=== PATIENT | male | born 1945 | race Caucasian/White ===

== ENCOUNTER 2017-09-10 10:14 | Inpatient (IN) | payer OTHER ==
[~2017-09-10] VITALS: Ht 177.8 cm; Wt 63.1 kg
[~2017-09-10 10:14] MED LIST: ATORVASTATIN CA40 M1 PO; ATROVENT H0.017 MG/1 INH; HYDROXYZINE PAM25 MG PO; LOPERAMIDE2 MG PO; NASONEX0.05 MG/Ac; NASONEX0.05 MG/Ac IH; TRIAMCINOLONE AC TP; TYLENOL WITH CO1 TA2 PO; VITAMIN B121000 MCG PO; XOPENEX HF0.045 MG/1 INH
[2017-09-10 11:31] LABS: PLATELET COUNT 155 x10^3mcL (130-400); RED CELL DISTRIBUTION WIDTH 12.4 % (11.5-14.5)
[2017-09-10 11:39] LABS: CALCIUM 8.9 mg/dL (8.5-10.1); CARBON DIOXIDE 30.4 mmol/L (21-32); CHLORIDE SERUM 101 mmol/L (98-107); GLUCOSE SERUM 100 mg/dL (74-106); POTASSIUM SERUM 3.9 mmol/L (3.5-5.1); SODIUM SERUM 141 mmol/L (136-145)
[2017-09-10 11:42] LABS: microscopic required? NO
[2017-09-10 11:44] LABS: ALBUMIN 3.5 g/dL (3.4-5.0); ALKALINE PHOSPHATASE 79 U/L (46-116); ALT/SGPT 21 U/L (16-63); AST/SGOT 15 U/L (15-37); BILIRUBIN TOTAL 1.3 mg/dL (0.20-1.00)
[2017-09-10] MEDS ORDERED: DULERA1 AR3 INH (12:28)
[2017-09-10] MEDS ORDERED: MECLIZINE HYDRO25 M1 PO (12:29)
[2017-09-10] MEDS ORDERED: SPIRIVA18 MC1 INH (12:29)
[2017-09-10] MEDS ORDERED: ASPIR LOW81 MG PO (12:29)
[2017-09-10 12:30] LABS: urine erythrocyte NEGATIVE (NEGATIVE)
[2017-09-10 13:09] VITALS: BP 145/54
[2017-09-10 14:00] VITALS: BP 145/54
[2017-09-10 17:50] VITALS: BP 120/55
[2017-09-10 21:27] VITALS: BP 111/56
[2017-09-11 05:36] VITALS: BP 96/54
[2017-09-11 06:48] LABS: PLATELET COUNT 150 x10^3mcL (130-400); RED CELL DISTRIBUTION WIDTH 13.5 % (11.5-14.5)
[2017-09-11 06:54] LABS: BASOPHIL % 0 % (0-2)
[2017-09-11 07:16] LABS: CALCIUM 8.9 mg/dL (8.5-10.1); CARBON DIOXIDE 28.3 mmol/L (21-32); CHLORIDE SERUM 105 mmol/L (98-107); CREATININE SERUM 1.1 mg/dL (0.7-1.3); GLUCOSE SERUM 179 mg/dL (74-106); POTASSIUM SERUM 3.9 mmol/L (3.5-5.1); SODIUM SERUM 141 mmol/L (136-145)
[2017-09-11 09:56] VITALS: BP 125/62
[2017-09-11 11:06] VITALS: Ht 177.8 cm; Wt 63.1 kg
[2017-09-11 13:02] VITALS: BP 131/71
[2017-09-11 13:19] VITALS: BP 131/71
[2017-09-11 13:20] VITALS: BP 131/71
== END 2017-09-11 14:09 | disposition home or self-care (01) | DRG 190 ==
LOC: ED 10:14 → DU 11:51
PROVIDERS: Emergency Medicine; Internal Medicine
DX: J44.1 Chronic obstructive pulmonary disease with (acute) exacerbation (principal); J96.91 Respiratory failure, unspecified with hypoxia; Z90.49 Acquired absence of other specified parts of digestive tract; E78.5 Hyperlipidemia, unspecified; Z87.891 Personal history of nicotine dependence; K29.70 Gastritis, unspecified, without bleeding; Z85.038 Personal history of other malignant neoplasm of large intestine; I25.10 Atherosclerotic heart disease of native coronary artery without angina pectoris; J20.9 Acute bronchitis, unspecified; J44.0 Chronic obstructive pulmonary disease with (acute) lower respiratory infection
CPT/HCPCS: 36600; 83880; 87804; J1644; J1956; J2920; J3490; J7613; J7620; J7626; J7644; Q0163

== ENCOUNTER 2020-01-11 10:29 | Inpatient (IN) | payer OTHER, SELFPAY ==
[~2020-01-11] VITALS: Ht 182.9 cm; Wt 58.3 kg
[~2020-01-11 10:29] MED LIST changes: +ASPIR LOW81 MG PO; +DULERA1 AR3 INH; +MECLIZINE HYDRO25 M1 PO; +SPIRIVA18 MC1 INH
[2020-01-11 10:36] VITALS: Ht 182.9 cm; Wt 58.3 kg
[2020-01-11] MEDS ORDERED: SPIRIVA RE2.5 MCG/Ac IH (10:58)
[2020-01-11] MEDS ORDERED: ASPIRIN CHILDRE81 MG PO (10:59)
[2020-01-11] MEDS ORDERED: XOPENEX HF0.045 MG/1 INH (10:59)
[2020-01-11] MEDS ORDERED: LOPERAMIDE HCL2 M1 PO (10:59)
[2020-01-11] MEDS ORDERED: NASCOBAL1 EACH NS (11:00)
[2020-01-11] MEDS ORDERED: ATORVASTATIN CA10 M1 PO (11:00)
[2020-01-11] MEDS ORDERED: DRAMAMINE LESS25 MG PO (11:00)
[2020-01-11] MEDS ORDERED: MOMETASONE FURO60 ML TOP (11:01)
[2020-01-11] MEDS ORDERED: FLOMAX0.4 MG PO (11:01)
[2020-01-11] MEDS ORDERED: MICROZIDE12.5 MG PO (11:01)
[2020-01-11 11:26] LABS: BASOPHIL % 0.2 % (0-2); CALCIUM 7.6 mg/dL (8.5-10.1); CARBON DIOXIDE 27.1 mmol/L (21-32); CHLORIDE SERUM 99 mmol/L (98-107); CREATININE SERUM 1.2 mg/dL (0.7-1.3); GLUCOSE SERUM 98 mg/dL (74-106); POTASSIUM SERUM 3.5 mmol/L (3.5-5.1); RED CELL DISTRIBUTION WIDTH 13.4 % (11.5-14.5); SODIUM SERUM 135 mmol/L (136-145)
[2020-01-11 11:27] LABS: PLATELET COUNT 111 x10^3mcL (130-400)
[2020-01-11 11:31] LABS: ALKALINE PHOSPHATASE 67 U/L (46-116); ALT/SGPT 21 U/L (16-63); AST/SGOT 41 U/L (15-37); BILIRUBIN TOTAL 0.8 mg/dL (0.20-1.00); C REACTIVE PROTEIN 5.3 mg/dL (<=0.9); LACTIC DEHYDROGENASE (LDH) 189 U/L (100-190)
[2020-01-11 11:33] LABS: TOTAL PROTEIN, SERUM 5.8 g/dL (6.4-8.2)
[2020-01-11 12:32] LABS: UA SPECIFIC GRAVITY 1.025 (1.005-1.035); microscopic required? YES; urine erythrocyte 1+ (NEGATIVE)
[2020-01-11 14:30] VITALS: BP 116/65
[2020-01-11 14:44] VITALS: BP 106/63
[2020-01-11 16:36] VITALS: BP 110/60
[2020-01-11 23:17] VITALS: BP 115/63
[2020-01-12 05:44] VITALS: BP 128/76
[2020-01-12 08:20] VITALS: BP 135/76
[2020-01-12 11:43] LABS: CALCIUM 8.2 mg/dL (8.5-10.1); CARBON DIOXIDE 30.4 mmol/L (21-32); CHLORIDE SERUM 104 mmol/L (98-107); CREATININE SERUM 1.1 mg/dL (0.7-1.3); GLUCOSE SERUM 182 mg/dL (74-106); POTASSIUM SERUM 3.5 mmol/L (3.5-5.1); SODIUM SERUM 141 mmol/L (136-145)
[2020-01-12 12:30] VITALS: BP 138/74
[2020-01-12 16:42] VITALS: BP 136/69
[2020-01-12 20:45] VITALS: BP 129/72
[2020-01-13 05:55] VITALS: BP 120/72
[2020-01-13 07:45] LABS: PLATELET COUNT 136 x10^3mcL (130-400); RED CELL DISTRIBUTION WIDTH 13.6 % (11.5-14.5)
[2020-01-13 08:04] LABS: CALCIUM 8.7 mg/dL (8.5-10.1); CARBON DIOXIDE 31.6 mmol/L (21-32); CHLORIDE SERUM 108 mmol/L (98-107); CREATININE SERUM 1.1 mg/dL (0.7-1.3); GLUCOSE SERUM 91 mg/dL (74-106); POTASSIUM SERUM 3.8 mmol/L (3.5-5.1); SODIUM SERUM 144 mmol/L (136-145)
[2020-01-13 08:14] LABS: BASOPHIL % 0 % (0-2)
[2020-01-13 13:22] VITALS: BP 148/79
[2020-01-13 17:30] VITALS: BP 142/87
[2020-01-13 22:17] VITALS: BP 123/87
[2020-01-14 06:31] VITALS: BP 121/77
[2020-01-14 07:17] LABS: CALCIUM 8.1 mg/dL (8.5-10.1); CARBON DIOXIDE 31.9 mmol/L (21-32); CHLORIDE SERUM 108 mmol/L (98-107); CREATININE SERUM 1.1 mg/dL (0.7-1.3); GLUCOSE SERUM 84 mg/dL (74-106); POTASSIUM SERUM 3.9 mmol/L (3.5-5.1); SODIUM SERUM 144 mmol/L (136-145)
[2020-01-14 07:25] VITALS: BP 128/78
[2020-01-14 07:55] LABS: BASOPHIL % 0.1 % (0-2); PLATELET COUNT 135 x10^3mcL (130-400); RED CELL DISTRIBUTION WIDTH 13.6 % (11.5-14.5)
[2020-01-14 13:45] VITALS: BP 128/81
[2020-01-14 17:02] VITALS: BP 117/72
[2020-01-14 21:44] VITALS: BP 150/89
[2020-01-15 07:24] LABS: ALKALINE PHOSPHATASE 67 U/L (46-116); ALT/SGPT 62 U/L (16-63); AST/SGOT 77 U/L (15-37); BILIRUBIN TOTAL 0.32 mg/dL (0.20-1.00); CALCIUM 8.4 mg/dL (8.5-10.1); CARBON DIOXIDE 30.9 mmol/L (21-32); CHLORIDE SERUM 105 mmol/L (98-107); CREATININE SERUM 0.9 mg/dL (0.7-1.3); GLUCOSE SERUM 85 mg/dL (74-106); SODIUM SERUM 141 mmol/L (136-145)
[2020-01-15 07:27] LABS: ALBUMIN 2.5 g/dL (3.4-5.0); TOTAL PROTEIN, SERUM 5.5 g/dL (6.4-8.2)
[2020-01-15 07:29] VITALS: BP 120/73
[2020-01-15 07:40] LABS: BASOPHIL % 0.2 % (0-2); PLATELET COUNT 139 x10^3mcL (130-400); RED CELL DISTRIBUTION WIDTH 13.5 % (11.5-14.5)
[2020-01-15 08:52] VITALS: BP 117/80
[2020-01-15 13:01] VITALS: BP 123/76
[2020-01-15 17:43] VITALS: BP 129/83
[2020-01-15 20:33] VITALS: BP 147/80
[2020-01-16 05:46] VITALS: BP 137/83
[2020-01-16 07:13] LABS: BASOPHIL % 0.3 % (0-2); PLATELET COUNT 168 x10^3mcL (130-400); RED CELL DISTRIBUTION WIDTH 13.4 % (11.5-14.5)
[2020-01-16 07:19] LABS: ALKALINE PHOSPHATASE 83 U/L (46-116); ALT/SGPT 98 U/L (16-63); AST/SGOT 98 U/L (15-37); BILIRUBIN TOTAL 0.5 mg/dL (0.20-1.00); CALCIUM 8.4 mg/dL (8.5-10.1); CARBON DIOXIDE 30.8 mmol/L (21-32); CHLORIDE SERUM 103 mmol/L (98-107); CREATININE SERUM 0.9 mg/dL (0.7-1.3); GLUCOSE SERUM 93 mg/dL (74-106); POTASSIUM SERUM 4.3 mmol/L (3.5-5.1); SODIUM SERUM 140 mmol/L (136-145)
[2020-01-16 07:21] LABS: ALBUMIN 2.7 g/dL (3.4-5.0); TOTAL PROTEIN, SERUM 5.8 g/dL (6.4-8.2)
[2020-01-16 08:46] VITALS: BP 132/78
[2020-01-16 12:57] VITALS: BP 119/76
[2020-01-16 18:03] VITALS: BP 122/65
[2020-01-16 20:00] VITALS: BP 147/81
[2020-01-17 06:13] VITALS: BP 114/63
[2020-01-17 07:23] LABS: BASOPHIL % 0.1 % (0-2); PLATELET COUNT 177 x10^3mcL (130-400); RED CELL DISTRIBUTION WIDTH 13.5 % (11.5-14.5)
[2020-01-17 07:43] LABS: ALBUMIN 2.6 g/dL (3.4-5.0); ALKALINE PHOSPHATASE 87 U/L (46-116); AST/SGOT 76 U/L (15-37); BILIRUBIN TOTAL 0.8 mg/dL (0.20-1.00); CALCIUM 7.7 mg/dL (8.5-10.1); CARBON DIOXIDE 23.4 mmol/L (21-32); CHLORIDE SERUM 103 mmol/L (98-107); CREATININE SERUM 0.5 mg/dL (0.7-1.3); GLUCOSE SERUM 96 mg/dL (74-106); POTASSIUM SERUM 4.1 mmol/L (3.5-5.1); TOTAL PROTEIN, SERUM 5.8 g/dL (6.4-8.2)
[2020-01-17 07:58] LABS: ALT/SGPT 99 U/L (16-63)
[2020-01-17 08:06] LABS: SODIUM SERUM 137 mmol/L (136-145)
[2020-01-17 08:47] VITALS: BP 125/69
[2020-01-17 13:18] VITALS: BP 124/82
[2020-01-17 17:04] VITALS: BP 123/77
[2020-01-17 21:11] VITALS: BP 120/78
[2020-01-18 05:35] VITALS: BP 123/78
[2020-01-18 06:45] LABS: PLATELET COUNT 203 x10^3mcL (130-400); RED CELL DISTRIBUTION WIDTH 13.7 % (11.5-14.5)
[2020-01-18 07:13] LABS: ALKALINE PHOSPHATASE 98 U/L (46-116); ALT/SGPT 86 U/L (16-63); AST/SGOT 43 U/L (15-37); BILIRUBIN TOTAL 0.8 mg/dL (0.20-1.00); CALCIUM 8.2 mg/dL (8.5-10.1); CARBON DIOXIDE 26.9 mmol/L (21-32); CHLORIDE SERUM 103 mmol/L (98-107); GLUCOSE SERUM 145 mg/dL (74-106); POTASSIUM SERUM 4.4 mmol/L (3.5-5.1); SODIUM SERUM 137 mmol/L (136-145)
[2020-01-18 07:14] LABS: ALBUMIN 2.7 g/dL (3.4-5.0); TOTAL PROTEIN, SERUM 5.9 g/dL (6.4-8.2)
[2020-01-18 09:14] VITALS: BP 143/54
[2020-01-18 09:18] LABS: BAND NEUTROPHIL 5 % (0-10); BASOPHIL 0 % (0-2); MONOCYTE 5 % (0-7); SEGMENTED NEUTROPHILS 80 % (37-75)
[2020-01-18 09:19] LABS: rbc morphology (normal/abnorm) ABNORMAL (NORMAL)
[2020-01-18 09:20] LABS: tear drop cell (dacryocyte) 1+
[2020-01-18 13:09] VITALS: BP 126/74
[2020-01-18 14:50] VITALS: BP 126/74
[2020-01-18 18:08] VITALS: BP 125/76
== END 2020-01-18 18:20 | disposition other institution (70) | DRG 177 ==
LOC: ED 10:29 → DU 12:36
PROVIDERS: Emergency Medicine; ADMIT Internal Medicine; ATTEND Internal Medicine
DX: U07.1 COVID-19 (principal); J12.89 Other viral pneumonia; J96.91 Respiratory failure, unspecified with hypoxia; J44.0 Chronic obstructive pulmonary disease with (acute) lower respiratory infection; E44.0 Moderate protein-calorie malnutrition; J44.1 Chronic obstructive pulmonary disease with (acute) exacerbation; M62.82 Rhabdomyolysis; N17.9 Acute kidney failure, unspecified; Z68.1 Body mass index [BMI] 19.9 or less, adult; E78.5 Hyperlipidemia, unspecified; Z90.49 Acquired absence of other specified parts of digestive tract; Z85.038 Personal history of other malignant neoplasm of large intestine; Z93.3 Colostomy status; J20.9 Acute bronchitis, unspecified; Z83.3 Family history of diabetes mellitus; Z82.49 Family history of ischemic heart disease and other diseases of the circulatory system; Z80.1 Family history of malignant neoplasm of trachea, bronchus and lung; Z80.8 Family history of malignant neoplasm of other organs or systems; Z79.82 Long term (current) use of aspirin; R00.1 Bradycardia, unspecified; I44.0 Atrioventricular block, first degree
CPT/HCPCS: 36600; 83880; 85378; 87804; G0378; J0456; J0696; J1650; J2550; J2930; J7030; J7040; J7050; J7060; Q0177; U0003-CS